=== PATIENT | female | born 1990 | race Caucasian/White ===

== ENCOUNTER 2019-05-26 00:42 | Inpatient (IN) | payer OTHER ==
[2019-05-26] MEDS ORDERED: Sodium Chloride 0.9% 2.5 ML Syringe FLUSH PRN (01:01)
[2019-05-26] MEDS ORDERED: Sodium Chloride 0.9% 10 ML Syringe FLUSH PRN (01:01)
[2019-05-26] MEDS ORDERED: Nalbuphine 10 MG/1 ML Vial IVPUSH PRN (01:01)
[2019-05-26] MEDS ORDERED: Butorphanol 1 MG/ML SDV IVPUSH PRN (01:01)
[2019-05-26] MEDS ORDERED: Methylergonovine 0.2 MG/1 ML Amp IM PRN ×2 (01:01→18:24)
[2019-05-26] MEDS ORDERED: Misoprostol 25 MCG (1/4 of 100 MCG) Tab VAG PRN ×2 (01:01)
[2019-05-26] MEDS ORDERED: Water For Irrigation,Sterile 1,000 ML Container IRR PRN (01:01)
[2019-05-26] MEDS ORDERED: Misoprostol 200 MCG Tab PO PRN (01:01)
[2019-05-26] MEDS ORDERED: Sodium Chloride 0.9% 10 ML SDV IV PRN (01:01)
[2019-05-26] MEDS ORDERED: Terbutaline 1 MG/ML SDV SUBCUT PRN (01:01)
[2019-05-26] MEDS ORDERED: Ondansetron 4 MG/2 ML SDV IVPUSH PRN (01:01)
[2019-05-26] MEDS ORDERED: Lidocaine 1% 50 ML MDV INJECT PRN (01:01)
[2019-05-26] MEDS ORDERED: Tranexamic Acid 1,000 MG in Sodium Chloride 0.9% 100 ML IV PRN ×2 (01:01→18:24)
[2019-05-26] MEDS ORDERED: Carboprost Tromethamine 250 MCG/1 ML Amp IM PRN (01:01)
[2019-05-26] MEDS ORDERED: Oxytocin/0.9 % Sodium Chloride 30 UNIT/500 ML BAG IV SCH ×2 (01:15)
[2019-05-26] MEDS: Lactated Ringers 1,000 ML IV SCH ×3 (08:14→16:00)
[2019-05-26] MEDS ORDERED: Bupivicaine/fentaNYL/NS 250 ML ONE (10:33)
[2019-05-26] MEDS ORDERED: Ropivacaine 0.2% PF 2 MG/ML 20 ML SDV ONE (10:33)
--- NOTE | 2019-05-26 11:19 | PCM.PREANE ---
Preanesthetic Assessment - Procedure Proposed Procedure: labor epidural - Anesthesia/Transfusion/Family Hx Anesthesia History: No Prior Anesthesia (exept labor epidural 3 yrs ago) Family History of Anesthesia Reaction: No Transfusion History: No Prior Transfusion(s) - Review of Systems General: No Symptoms Pulmonary: No Symptoms Cardiovascular: No Symptoms Gastrointestinal: No Symptoms Neurological: No Symptoms Other: Reports: None - Physical Assessment Height: 5 ft 7 in Weight: 102.512 kg ASA Class: 2 Mental Status: Alert & Oriented x3 Airway Class: Mallampati = 1 Dentition: Reports: Normal Dentition Thyro-Mental Finger Breadths: 3 Mouth Opening Finger Breadths: 3 ROM/Head Extension: Full Lungs: Clear to Auscultation Cardiovascular: Regular Rate, Regular Rhythm - Lab Values: Laboratory Last Values WBC 10.73 K/uL (4.0-11.0) 05/26/19 02:15 RBC 4.25 M/uL (4.30-5.90) L 05/26/19 02:15 Hgb 11.1 g/dL (12.0-16.0) L 05/26/19 02:15 Hct 35.2 % (36.0-46.0) L 05/26/19 02:15 MCV 82.8 fL (80.0-98.0) 05/26/19 02:15 MCH 26.1 pg (27.0-32.0) L 05/26/19 02:15 MCHC 31.5 g/dL (31.0-37.0) 05/26/19 02:15 RDW Std Deviation 46.7 fl (28.0-62.0) 05/26/19 02:15 RDW Coeff of Steph 16 % (11.0-15.0) H 05/26/19 02:15 Plt Count 209 K/uL (150-400) 05/26/19 02:15 MPV 12.60 fL (7.40-12.00) H 05/26/19 02:15 Nucleated RBC % 0.0 /100WBC 05/26/19 02:15 Nucleated RBCs # 0 K/uL 05/26/19 02:15 POC Glucose 98 mg/dL (60-110) 05/26/19 03:54 Blood Type A POSITIVE 05/26/19 02:55 Antibody Screen NEGATIVE 05/26/19 02:55 - Allergies Allergies/Adverse Reactions: Allergies Allergy/AdvReac Type Severity Reaction Status Date / Time No Known Allergies Allergy Verified 05/26/19 04:22 - Blood Blood Available: Yes Product(s) Available: PRBC - Acknowledgements Anesthesia Type Planned: Epidural Pt an Appropriate Candidate for the Planned Anesthesia: Yes Alternatives and Risks of Anesthesia Discussed w Pt/Guardian: Yes Pt/Guardian Understands and Agrees with Anesthesia Plan: Yes PreAnesthesia Questionnaire [employer] History: Reports: , Spontaneous Other Psychiatric History: possible post depression with first delivery Endocrine/Metabolic History: Reports: Diabetes, Gestational - Infectious Disease History Infectious Disease History: Reports: Chicken Pox - SUBSTANCE USE Smoking Status *Q: Never Smoker Second Hand Smoke Exposure: No Recreational Drug Use History: No - CURRENT (IN HOUSE) MEDS Current Meds: Current Medications Butorphanol Tartrate (Stadol) 1 mg IVPUSH Q1H PRN PRN Reason: Pain Carboprost Tromethamine (Hemabate Ds) 250 mcg IM ASDIRECTED PRN PRN Reason: Post Hemorrhage Lactated Ringer's (Ringers, Lactated) 1,000 mls @ 150 mls/hr IV ASDIRECTED RADHA Last Admin: 05/26/19 08:14 Dose: 150 mls/hr Oxytocin/Sodium Chloride (Oxytocin 30 Unit/500 Ml-Ns) 30 unit in 500 mls @ 500 mls/hr IV TITRATE RADHA Oxytocin/Sodium Chloride (Oxytocin 30 Unit/500 Ml-Ns) 30 unit in 500 mls @ 2 mls/hr IV TITRATE RADHA; Protocol Last Titration: 05/26/19 08:52 Dose: 4 munits/min, 4 mls/hr Tranexamic Acid 1,000 mg/ (Sodium Chloride) 110 mls @ 660 mls/hr IV ONETIME PRN PRN Reason: Bleeding Lidocaine HCl (Xylocaine 1%) 50 ml INJECT ONETIME PRN PRN Reason: Laceration repair Methylergonovine Maleate (Methergine) 0.2 mg IM ASDIRECTED PRN PRN Reason: Post Hemorrhage Misoprostol (Cytotec) 200 mcg PO ONETIME PRN PRN Reason: Post Hemorrhage Misoprostol (Cytotec) 25 mcg VAG ONETIME PRN PRN Reason: Cervical Ripening Last Admin: 05/26/19 03:24 Dose: 25 mcg Misoprostol (Cytotec) 25 mcg VAG Q4H PRN PRN Reason: Cervical Ripening Nalbuphine HCl (Nubain) 10 mg IVPUSH Q1H PRN PRN Reason: Pain (severe 7-10) Ondansetron HCl (Zofran) 4 mg IVPUSH Q6H PRN PRN Reason: Nausea/Vomiting Sodium Chloride (Saline Flush) 10 ml FLUSH ASDIRECTED PRN PRN Reason: Keep Vein Open Sodium Chloride (Saline Flush) 2.5 ml FLUSH ASDIRECTED PRN PRN Reason: Keep Vein Open Sodium Chloride (Normal Saline) 10 ml IV ASDIRECTED PRN PRN Reason: IV Use Sterile Water (Sterile Water For Irrigation) 1,000 ml IRR ASDIRECTED PRN PRN Reason: delivery Terbutaline Sulfate (Brethine) 0.25 mg SUBCUT ASDIRECTED PRN PRN Reason: Tacysystole Discontinued Medications Fentanyl/Bupivacaine HCl (Fentanyl/Bupivacaine/Ns 2 Mcg-0.125% 250 Ml) Confirm Administered Dose 250 mls @ as [facility] Stop: 05/26/19 10:34 Ropivacaine (Naropin 0.2%) Confirm Administered Dose 20 ml .ROUTE .STK-MED ONE Stop: 05/26/19 10:34
[2019-05-26] MEDS ORDERED: Bupivacaine 0.5% 10 ML SDV ONE (16:36)
--- NOTE | 2019-05-26 18:21 | PCM.DEL ---
L & D Note - General Info Date of Service: 05/26/19 Mother's Due Date: 06/04/19 - Delivery Note Labor: Induced by Oxytocin Cervical Ripening Method: Misoprostil Delivery Outcome: Livebirth Infant Delivery Method: Spontaneous Vaginal Delivery-Single Presentation: Left Occiput Anterior (BRAIN) Nuchal Cord: None Prep: Other Anesthesia Type: Epidural Amniotic Fluid Description: Clear Episiotomy Type: None Laceration: 2nd Degree Suture type: Vicryl Suture size: 3-0 Placenta: Intact, Spontaneous Cord: 3 Vessels Estimated Blood Loss: 200 Resuscitation Needed: No : Suctioned Score 1 min: 9 Score 5 min: 9 Delivery Comments (Free Text/Narrative):: Liveborn female 11/11 weight 3930 grams. - General Info Date of Service: 05/26/19 - Patient Data Weight - Most Recent: 102.512 kg Lab Results Last 24 Hours: Laboratory Results - last 24 hr 05/26/19 05/26/19 05/26/19 Range/Units 02:15 02:55 03:54 WBC 10.73 (4.0-11.0) K/uL RBC 4.25 L (4.30-5.90) M/uL Hgb 11.1 L (12.0-16.0) g/dL Hct 35.2 L (36.0-46.0) % MCV 82.8 (80.0-98.0) fL MCH 26.1 L (27.0-32.0) pg MCHC 31.5 (31.0-37.0) g/dL RDW Std Deviation 46.7 (28.0-62.0) fl RDW Coeff of Steph 16 H (11.0-15.0) % Plt Count 209 (150-400) K/uL MPV 12.60 H (7.40-12.00) fL Nucleated RBC % 0.0 /100WBC Nucleated RBCs # 0 K/uL POC Glucose 98 (60-110) mg/dL Blood Type A POSITIVE Antibody Screen NEGATIVE 05/26/19 Range/Units 14:26 WBC (4.0-11.0) K/uL RBC (4.30-5.90) M/uL Hgb (12.0-16.0) g/dL Hct (36.0-46.0) % MCV (80.0-98.0) fL MCH (27.0-32.0) pg MCHC (31.0-37.0) g/dL RDW Std Deviation (28.0-62.0) fl RDW Coeff of Steph (11.0-15.0) % Plt Count (150-400) K/uL MPV (7.40-12.00) fL Nucleated RBC % /100WBC Nucleated RBCs # K/uL POC Glucose 90 (60-110) mg/dL Blood Type Antibody Screen Med Orders - Current: Current Medications Butorphanol Tartrate (Stadol) 1 mg IVPUSH Q1H PRN PRN Reason: Pain Carboprost Tromethamine (Hemabate Ds) 250 mcg IM ASDIRECTED PRN PRN Reason: Post Hemorrhage Lactated Ringer's (Ringers, Lactated) 1,000 mls @ 150 mls/hr IV ASDIRECTED RADHA Last Admin: 05/26/19 16:00 Dose: 150 mls/hr Oxytocin/Sodium Chloride (Oxytocin 30 Unit/500 Ml-Ns) 30 unit in 500 mls @ 500 mls/hr IV TITRATE RADHA Oxytocin/Sodium Chloride (Oxytocin 30 Unit/500 Ml-Ns) 30 unit in 500 mls @ 2 mls/hr IV TITRATE RADHA; Protocol Last Titration: 05/26/19 17:15 Dose: 10 munits/min, 10 mls/hr Tranexamic Acid 1,000 mg/ (Sodium Chloride) 110 mls @ 660 mls/hr IV ONETIME PRN PRN Reason: Bleeding Lidocaine HCl (Xylocaine 1%) 50 ml INJECT ONETIME PRN PRN Reason: Laceration repair Methylergonovine Maleate (Methergine) 0.2 mg IM ASDIRECTED PRN PRN Reason: Post Hemorrhage Misoprostol (Cytotec) 200 mcg PO ONETIME PRN PRN Reason: Post Hemorrhage Misoprostol (Cytotec) 25 mcg VAG ONETIME PRN PRN Reason: Cervical Ripening Last Admin: 05/26/19 03:24 Dose: 25 mcg Misoprostol (Cytotec) 25 mcg VAG Q4H PRN PRN Reason: Cervical Ripening Nalbuphine HCl (Nubain) 10 mg IVPUSH Q1H PRN PRN Reason: Pain (severe 7-10) Ondansetron HCl (Zofran) 4 mg IVPUSH Q6H PRN PRN Reason: Nausea/Vomiting Sodium Chloride (Saline Flush) 10 ml FLUSH ASDIRECTED PRN PRN Reason: Keep Vein Open Sodium Chloride (Saline Flush) 2.5 ml FLUSH ASDIRECTED PRN PRN Reason: Keep Vein Open Sodium Chloride (Normal Saline) 10 ml IV ASDIRECTED PRN PRN Reason: IV Use Sterile Water (Sterile Water For Irrigation) 1,000 ml IRR ASDIRECTED PRN PRN Reason: delivery Terbutaline Sulfate (Brethine) 0.25 mg SUBCUT ASDIRECTED PRN PRN Reason: Tacysystole Discontinued Medications Bupivacaine HCl (Sensorcaine-Mpf 0.5%) Confirm Administered Dose 10 ml .ROUTE .STK-MED ONE Stop: 05/26/19 16:37 Fentanyl/Bupivacaine HCl (Fentanyl/Bupivacaine/Ns 2 Mcg-0.125% 250 Ml) Confirm Administered Dose 250 mls @ as directed .[facility]TE [facility] Stop: 05/26/19 10:34 Ropivacaine (Naropin 0.2%) Confirm Administered Dose 20 ml .ROUTE .STK-MED ONE Stop: 05/26/19 10:34 - Problem List & Annotations (1) Vaginal delivery SNOMED Code(s): 081685237 Code(s): O80 - ENCOUNTER FOR FULL-TERM UNCOMPLICATED DELIVERY Status: Acute Current Visit: Yes - Problem List Review Problem List Initiated/Reviewed/Updated: Yes - My Orders Last 24 Hours: My Active Orders 05/26/19 01:01 Patient Status [ADT] Routine Bedrest Bathroom Privileges [RC] ASDIRECTED Communication Order [RC] ASDIRECTED Communication Order [RC] ASDIRECTED May Shower [RC] ASDIRECTED Notify Provider [RC] PRN Notify Provider [RC] PRN Oxygen Therapy [RC] ASDIRECTED Up ad Pepper [RC] ASDIRECTED Vital Signs [RC] PER UNIT ROUTINE Vital Signs [RC] PER UNIT ROUTINE Butorphanol [Stadol] 1 mg IVPUSH Q1H PRN Carboprost Tromethamine [Hemabate DS] 250 mcg IM ASDIRECTED PRN Lidocaine 1% [Xylocaine 1%] 50 ml INJECT ONETIME PRN Methylergonovine [Methergine] 0.2 mg IM ASDIRECTED PRN Nalbuphine [Nubain] 10 mg IVPUSH Q1H PRN Ondansetron [Zofran] 4 mg IVPUSH Q6H PRN Sodium Chloride 0.9% [Normal Saline] 10 ml IV ASDIRECTED PRN Sodium Chloride 0.9% [Saline Flush] 10 ml FLUSH ASDIRECTED PRN Sodium Chloride 0.9% [Saline Flush] 2.5 ml FLUSH ASDIRECTED PRN Terbutaline [Brethine] 0.25 mg SUBCUT ASDIRECTED PRN Tranexamic Acid [Cyklokapron] 1,000 mg Sodium Chloride 0.9% [Normal Saline] 100 ml IV ONETIME Water For Irrigation,Sterile [Sterile Water for Irrigation] 1,000 ml IRR ASDIRECTED PRN miSOPROStoL [Cytotec] 200 mcg PO ONETIME PRN miSOPROStoL [Cytotec] 25 mcg VAG ONETIME PRN miSOPROStoL [Cytotec] 25 mcg VAG Q4H PRN Scalp Electrode [WOMSER] Per Unit Routine Peripheral IV Insertion Adult [OM.PC] Routine Resuscitation Status Routine 05/26/19 01:15 Lactated Ringers [Ringers, Lactated] 1,000 ml IV ASDIRECTED Oxytocin/0.9 % Sodium Chloride [Oxytocin 30 Unit/500 ML-NS] 30 unit in 500 ml IV TITRATE Oxytocin/0.9 % Sodium Chloride [Oxytocin 30 Unit/500 ML-NS] 30 unit in 500 ml IV TITRATE Medication Administration Instruction [OM.PC] Q3H 05/26/19 02:15 RPR (SYPHILIS SERO) W/ RFLX [REF] Routine 05/26/19 Breakfast Regular Diet [DIET]
[2019-05-26] MEDS ORDERED: Bisacodyl 10 MG Supp RECTAL PRN (18:24)
[2019-05-26] MEDS ORDERED: Acetaminophen 500 MG Tab PO PRN (18:24)
[2019-05-26] MEDS ORDERED: Lanolin 100% Cream 7 GM Tube TOP PRN (18:24)
[2019-05-26] MEDS ORDERED: Witch Hazel Medicated Pads 40/Jar TOP PRN (18:24)
[2019-05-26] MEDS ORDERED: Benzocaine/Menthol 20%-0.5% Spray 78 GM Cannister TOP PRN (18:24)
--- NOTE | 2019-05-26 19:19 | OR ---
SURGEON: Yarely Nj M.D. DATE OF PROCEDURE: 05/26/2019 PREOPERATIVE DIAGNOSES: A 38-5/7 weeks' intrauterine , gestational diabetes, suspected macrosomia. POSTOPERATIVE DIAGNOSES: A 38-5/7 weeks' intrauterine , gestational diabetes, suspected macrosomia. PROCEDURES: Cytotec and Pitocin induction of labor, term spontaneous vaginal delivery, repair of second-degree laceration. PRIMARY SURGEON: Yarely Nj MD ANESTHESIA: Epidural. ESTIMATED BLOOD LOSS: Less than 200 mL. FINDINGS: Liveborn female, score of 9 and 9, weighing 3930 g. Placenta spontaneous, Schultze intact with 3 vessels. Second-degree perineal laceration, repaired. COMPLICATIONS: None known. DISPOSITION: Mother and baby in LDR in good condition. BRIEF HISTORY: This is a 28-year-old female. She is G2, P1. She presents at 38-5/7 weeks' gestation. She has been on insulin for control of her gestational diabetes. Fastings have been somewhat elevated. Other readings have been normal. Estimated weight of 4000 g on ultrasound. She has a history of a fourth- degree laceration. She was offered delivery. She declines, desires to proceed with vaginal delivery. The risks of induction including hyperstimulation, bleeding, infection were discussed, and she does desire to proceed. She arrived on Labor and Delivery. She received Cytotec. After this, she was 2 cm, 70%, high. She was started on Pitocin. She received an epidural for pain control. At this point, she was 2 to 3 cm, 70%, minus 3 station. With the head well applied, artificial rupture of membranes was performed, clear fluid was noted. IUPC was placed. She was continued on Pitocin. With somewhat dysfunctional labor pattern at first, Pitocin had to be discontinued due to a 20- minute episode of decelerations. It was restarted at a half dose, which was 8 milliunits per minute. Labor then became more functional, and she progressed to complete. DESCRIPTION OF PROCEDURE: With the patient in dorsal lithotomy position, the patient pushed over a 1 hour time period to a 5+ station at which time the head was delivered spontaneously and atraumatically over the perineum with support with subsequent delivery of the 's shoulders and body without any difficulty. The infant was bulb suctioned by nose and mouth, and the infant was handed to the mother in the presence of nurse attending delivery. When the cord had ceased to pulsate, it was doubly clamped and cut. The was a liveborn female, score of 9 and 9, weighing 3930 g. Cord blood was collected for cord ABGs as well as routine cord blood sampling. Pitocin was initiated after delivery of the to help with delivery of the placenta, which was delivered spontaneously, Schultze intact with 3 vessels. Upon inspection of the pelvis and perineum, there were no periurethral, vaginal sidewall, cervical, or rectal lacerations. There was a second-degree perineal laceration along the same line as her prior laceration with significant scarring around the perineum. Deep interrupted [id number] sutures were placed into the perineum and the posterior subvaginal tissue for support, placing a finger in the rectum that there was no tear in the rectum and the sphincter was intact. Following the support sutures that were placed, a running lock suture of 3-0 Vicryl was used to reapproximate the vaginal mucosa. A deep running suture of the same for the more superficial perineum and a subcuticular suture of the same for the skin. Final sponge, needle, and instrument counts were reported as correct. There were no known complications. Mother and baby remained in LDR in good condition. MARY CANTRELL /[id number]
[2019-05-26] MEDS: Acetaminophen 500 MG Tab PO PRN (20:00)
--- NOTE | 2019-05-26 22:10 | PCM48HPAN ---
Post Anesthesia Note - EVALUATION WITHIN 48HRS OF ANESTHETIC Vital Signs in Normal Range: Yes Patient Participated in Evaluation: Yes Respiratory Function Stable: Yes Airway Patent: Yes Cardiovascular Function Stable: Yes Hydration Status Stable: Yes Pain Control Satisfactory: Yes Nausea and Vomiting Control Satisfactory: Yes Mental Status Recovered: Yes
[2019-05-26] MEDS: Ibuprofen 800 MG Tab PO PRN (22:50)
[2019-05-27] MEDS: Acetaminophen 500 MG Tab PO PRN (02:09)
[2019-05-27 07:15] LABS: BLOOD UREA NITROGEN,BUN 8 mg/dL (7.0-18.0); CARBON DIOXIDE,CO2 22.3 mmol/L (21.0-32.0); CHLORIDE,CL 108 mmol/L (98-107); GLUCOSE RANDOM 112 mg/dL (74-106); POTASSIUM,K 3.8 mmol/L (3.5-5.1); SODIUM,NA 141 mmol/L (136-145)
[2019-05-27] MEDS: Ibuprofen 800 MG Tab PO PRN ×2 (09:20→20:08)
[2019-05-27] MEDS: Docusate Sodium 100 MG Cap PO PRN ×2 (09:21→21:54)
--- NOTE | 2019-05-27 11:30 | PCM.PNPP ---
- General Info Date of Service: 05/27/19 Functional Status: Reports: Pain Controlled, Tolerating Diet, Ambulating, Urinating - Review of Systems General: Reports: No Symptoms HEENT: Reports: No Symptoms Pulmonary: Reports: No Symptoms Cardiovascular: Reports: No Symptoms Gastrointestinal: Reports: No Symptoms Genitourinary: Reports: No Symptoms Musculoskeletal: Reports: No Symptoms Skin: Reports: No Symptoms Neurological: Reports: No Symptoms Psychiatric: Reports: No Symptoms - General Info Date of Service: 05/27/19 - Patient Data Vital Signs - Most Recent: Last Vital Signs Temp 36.1 C 05/27/19 04:00 Pulse 74 05/27/19 04:00 Resp 16 05/27/19 04:00 BP 115/64 05/27/19 04:00 Pulse Ox 98 05/27/19 04:00 Weight - Most Recent: 102.512 kg Lab Results - Last 24 Hours: Laboratory Results - last 24 hr 05/26/19 05/26/19 05/27/19 Range/Units 14:26 17:53 06:05 Hgb 9.7 L (12.0-16.0) g/dL Hct 31.5 L (36.0-46.0) % Cord ABG pH 7.204 (7.18-7.38) Cord ABG Base Excess -9 (-10--2) Cord VBG pH 7.385 (7.25-7.45) Cord VBG Base Excess -6 (-10--2) Sodium (136-145) mmol/L Potassium (3.5-5.1) mmol/L Chloride (98-107) mmol/L Carbon Dioxide (21.0-32.0) mmol/L BUN (7.0-18.0) mg/dL Creatinine (0.6-1.0) mg/dL Est Cr Clr Drug Dosing mL/min Estimated GFR (MDRD) ml/min Glucose (74-106) mg/dL POC Glucose 90 (60-110) mg/dL Calcium (8.5-10.1) mg/dL 05/27/19 Range/Units 06:05 Hgb (12.0-16.0) g/dL Hct (36.0-46.0) % Cord ABG pH (7.18-7.38) Cord ABG Base Excess (-10--2) Cord VBG pH (7.25-7.45) Cord VBG Base Excess (-10--2) Sodium 141 (136-145) mmol/L Potassium 3.8 (3.5-5.1) mmol/L Chloride 108 H (98-107) mmol/L Carbon Dioxide 22.3 (21.0-32.0) mmol/L BUN 8 (7.0-18.0) mg/dL Creatinine 0.6 (0.6-1.0) mg/dL Est Cr Clr Drug Dosing 138.17 mL/min Estimated GFR (MDRD) > 60.0 ml/min Glucose 112 H (74-106) mg/dL POC Glucose (60-110) mg/dL Calcium 9.2 (8.5-10.1) mg/dL Med Orders - Current: Current Medications Acetaminophen (Tylenol Extra Strength) 500 mg PO Q4H PRN PRN Reason: Pain Acetaminophen (Tylenol Extra Strength) 1,000 mg PO Q4H PRN PRN Reason: Pain Last Admin: 05/27/19 02:09 Dose: 1,000 mg Benzocaine/Menthol (Dermoplast Pain Relief 20%-0.5% Kemp) 78 gm TOP ASDIRECTED PRN PRN Reason: Perineal Comfort Measure Bisacodyl (Dulcolax) 10 mg RECTAL ONETIME PRN PRN Reason: Constipation Docusate Sodium (Colace) 100 mg PO BID PRN PRN Reason: Constipation Last Admin: 05/27/19 09:21 Dose: 100 mg Emollient Ointment (Lansinoh Hpa) 0 gm TOP ASDIRECTED PRN PRN Reason: Sore Nipples Tranexamic Acid 1,000 mg/ (Sodium Chloride) 110 mls @ 660 mls/hr IV ONETIME PRN PRN Reason: Bleeding Ibuprofen (Motrin) 800 mg PO Q8H PRN PRN Reason: Abdominal Pain Last Admin: 05/27/19 09:20 Dose: 800 mg Methylergonovine Maleate (Methergine) 0.2 mg IM ONETIME PRN PRN Reason: Excessive Vaginal Bleeding Witch Nuzhat (Tucks) 1 pad TOP ASDIRECTED PRN PRN Reason: comfort care Discontinued Medications Bupivacaine HCl (Sensorcaine-Mpf 0.5%) Confirm Administered Dose 10 ml .ROUTE .STK-MED ONE Stop: 05/26/19 16:37 Butorphanol Tartrate (Stadol) 1 mg IVPUSH Q1H PRN PRN Reason: Pain Carboprost Tromethamine (Hemabate Ds) 250 mcg IM ASDIRECTED PRN PRN Reason: Post Hemorrhage Lactated Ringer's (Ringers, Lactated) 1,000 mls @ 150 mls/hr IV ASDIRECTED RADHA Last Admin: 05/26/19 16:00 Dose: 150 mls/hr Oxytocin/Sodium Chloride (Oxytocin 30 Unit/500 Ml-Ns) 30 unit in 500 mls @ 500 mls/hr IV TITRATE RADHA Oxytocin/Sodium Chloride (Oxytocin 30 Unit/500 Ml-Ns) 30 unit in 500 mls @ 2 mls/hr IV TITRATE RADHA; Protocol Last Titration: 05/26/19 17:15 Dose: 10 munits/min, 10 mls/hr Tranexamic Acid 1,000 mg/ (Sodium Chloride) 110 mls @ 660 mls/hr IV ONETIME PRN PRN Reason: Bleeding Fentanyl/Bupivacaine HCl (Fentanyl/Bupivacaine/Ns 2 Mcg-0.125% 250 Ml) Confirm Administered Dose 250 mls @ as directed .ROUTE .[employer]-MED ONE Stop: 05/26/19 10:34 Lidocaine HCl (Xylocaine 1%) 50 ml INJECT ONETIME PRN PRN Reason: Laceration repair Methylergonovine Maleate (Methergine) 0.2 mg IM ASDIRECTED PRN PRN Reason: Post Hemorrhage Misoprostol (Cytotec) 200 mcg PO ONETIME PRN PRN Reason: Post Hemorrhage Misoprostol (Cytotec) 25 mcg VAG ONETIME PRN PRN Reason: Cervical Ripening Last Admin: 05/26/19 03:24 Dose: 25 mcg Misoprostol (Cytotec) 25 mcg VAG Q4H PRN PRN Reason: Cervical Ripening Nalbuphine HCl (Nubain) 10 mg IVPUSH Q1H PRN PRN Reason: Pain (severe 7-10) Ondansetron HCl (Zofran) 4 mg IVPUSH Q6H PRN PRN Reason: Nausea/Vomiting Ropivacaine (Naropin 0.2%) Confirm Administered Dose 20 ml .ROUTE .[email or web address]-MED ONE Stop: 05/26/19 10:34 Sodium Chloride (Saline Flush) 10 ml FLUSH ASDIRECTED PRN PRN Reason: Keep Vein Open Sodium Chloride (Saline Flush) 2.5 ml FLUSH ASDIRECTED PRN PRN Reason: Keep Vein Open Sodium Chloride (Normal Saline) 10 ml IV ASDIRECTED PRN PRN Reason: IV Use Sterile Water (Sterile Water For Irrigation) 1,000 ml IRR ASDIRECTED PRN PRN Reason: delivery Terbutaline Sulfate (Brethine) 0.25 mg SUBCUT ASDIRECTED PRN PRN Reason: Tacysystole - Infant Interaction Disposition, : [place] in Room with Family Feeding: Breastfed Infant; Nursed Well Support Person: - Recovery Exam Fundal Tone: Firm Fundal Level: 1 Fingerbreadths Below Umbilicus Fundal Placement: Midline Lochia Amount: Small Lochia Color: Rubra/Red Perineum Description: Intact, Minimal Bruising/Swelling Episiotomy/Laceration: None Bladder Status: Voiding Urinary Elimination: Voided - Exam General: Alert, Oriented HEENT: Pupils Equal Neck: Supple Lungs: Normal Respiratory Effort GI/Abdominal Exam: Soft, Non-Tender, No Distention Extremities: Normal Inspection, Non-Tender, No Pedal Edema Skin: Warm, Dry, Intact Neurological: No New Focal Deficit - Problem List & Annotations (1) Vaginal delivery SNOMED Code(s): 768683936 Code(s): O80 - ENCOUNTER FOR FULL-TERM UNCOMPLICATED DELIVERY Status: Acute Current Visit: Yes (2) Gestational diabetes mellitus (GDM) in childbirth, insulin controlled SNOMED Code(s): 76754851 Code(s): O24.424 - GESTATIONAL DIABETES IN CHILDBIRTH, INSULIN CONTROLLED Status: Acute Current Visit: Yes - Problem List Review Problem List Initiated/Reviewed/Updated: Yes - My Orders Last 24 Hours: My Active Orders 05/26/19 18:24 Acetaminophen [Tylenol Extra Strength] 1,000 mg PO Q4H PRN Acetaminophen [Tylenol Extra Strength] 500 mg PO Q4H PRN Benzocaine/Menthol [Dermoplast Pain Relief 20%-0.5% Kemp] 78 gm TOP ASDIRECTED PRN Docusate Sodium [Colace] 100 mg PO BID PRN Lanolin [Lansinoh HPA] See Dose Instructions TOP ASDIRECTED PRN Methylergonovine [Methergine] 0.2 mg IM ONETIME PRN Tranexamic Acid [Cyklokapron] 1,000 mg Sodium Chloride 0.9% [Normal Saline] 100 ml IV ONETIME bisacodyL [Dulcolax] 10 mg RECTAL ONETIME PRN witch Nuzhat [Tucks] 1 pad TOP ASDIRECTED PRN Resuscitation Status Routine 05/26/19 18:25 Patient Status [ADT] Routine May Shower [RC] ASDIRECTED Up ad Pepper [RC] ASDIRECTED Vital Signs [RC] PER UNIT ROUTINE Assess Lochia [WOMSER] Per Unit Routine Assess Uterine Involution [WOMSER] Per Unit Routine Perineal Care [OM.PC] Per Unit Routine Peripheral IV Discontinue [OM.PC] Routine 05/26/19 Dinner Regular Diet [DIET] 05/27/19 11:27 Ready for Discharge [RC] PER UNIT ROUTINE - Assessment Assessment:: PPD#1 after stable minimal lochia, tolerating diet. Fasting glucose this am was 112. She would like to go home today. - Plan Plan:: Discharge instructions reviewed. Needs 2 hour glucose tolerance test at 6 weeks .
[2019-05-28] MEDS: Ibuprofen 800 MG Tab PO PRN ×2 (05:03→14:43)
--- NOTE | 2019-05-28 08:36 | PCM.PNPP ---
- General Info Date of Service: 05/28/19 Functional Status: Reports: Pain Controlled, Tolerating Diet, Ambulating, Urinating, Other (baby stayed due to jitteriness yesterday. Labs and vitals normal.) - Review of Systems General: Reports: No Symptoms HEENT: Reports: No Symptoms Pulmonary: Reports: No Symptoms Cardiovascular: Reports: No Symptoms Gastrointestinal: Reports: No Symptoms Genitourinary: Reports: No Symptoms Musculoskeletal: Reports: No Symptoms Skin: Reports: No Symptoms Neurological: Reports: No Symptoms Psychiatric: Reports: No Symptoms - General Info Date of Service: 05/28/19 - Patient Data Vital Signs - Most Recent: Last Vital Signs Temp 36.4 C 05/28/19 04:00 Pulse 71 05/28/19 04:00 Resp 16 05/28/19 04:00 BP 108/58 L 05/28/19 04:00 Pulse Ox 98 05/28/19 04:00 Weight - Most Recent: 102.512 kg Med Orders - Current: Current Medications Acetaminophen (Tylenol Extra Strength) 500 mg PO Q4H PRN PRN Reason: Pain Acetaminophen (Tylenol Extra Strength) 1,000 mg PO Q4H PRN PRN Reason: Pain Last Admin: 05/27/19 02:09 Dose: 1,000 mg Benzocaine/Menthol (Dermoplast Pain Relief 20%-0.5% Garner) 78 gm TOP ASDIRECTED PRN PRN Reason: Perineal Comfort Measure Bisacodyl (Dulcolax) 10 mg RECTAL ONETIME PRN PRN Reason: Constipation Docusate Sodium (Colace) 100 mg PO BID PRN PRN Reason: Constipation Last Admin: 05/27/19 21:54 Dose: 100 mg Emollient Ointment (Lansinoh Hpa) 0 gm TOP ASDIRECTED PRN PRN Reason: Sore Nipples Tranexamic Acid 1,000 mg/ (Sodium Chloride) 110 mls @ 660 mls/hr IV ONETIME PRN PRN Reason: Bleeding Ibuprofen (Motrin) 800 mg PO Q8H PRN PRN Reason: Abdominal Pain Last Admin: 05/28/19 05:03 Dose: 800 mg Methylergonovine Maleate (Methergine) 0.2 mg IM ONETIME PRN PRN Reason: Excessive Vaginal Bleeding Witch Nella (Tucks) 1 pad TOP ASDIRECTED PRN PRN Reason: comfort care Discontinued Medications Bupivacaine HCl (Sensorcaine-Mpf 0.5%) Confirm Administered Dose 10 ml .ROUTE .[employer] ONE Stop: 05/26/19 16:37 Butorphanol Tartrate (Stadol) 1 mg IVPUSH Q1H PRN PRN Reason: Pain Carboprost Tromethamine (Hemabate Ds) 250 mcg IM ASDIRECTED PRN PRN Reason: Post Hemorrhage Lactated Ringer's (Ringers, Lactated) 1,000 mls @ 150 mls/hr IV ASDIRECTED RADHA Last Admin: 05/26/19 16:00 Dose: 150 mls/hr Oxytocin/Sodium Chloride (Oxytocin 30 Unit/500 Ml-Ns) 30 unit in 500 mls @ 500 mls/hr IV TITRATE RADHA Oxytocin/Sodium Chloride (Oxytocin 30 Unit/500 Ml-Ns) 30 unit in 500 mls @ 2 mls/hr IV TITRATE RADHA; Protocol Last Titration: 05/26/19 17:15 Dose: 10 munits/min, 10 mls/hr Tranexamic Acid 1,000 mg/ (Sodium Chloride) 110 mls @ 660 mls/hr IV ONETIME PRN PRN Reason: Bleeding Fentanyl/Bupivacaine HCl (Fentanyl/Bupivacaine/Ns 2 Mcg-0.125% 250 Ml) Confirm Administered Dose 250 mls @ as directed .ROUTE .[employer] ONE Stop: 05/26/19 10:34 Lidocaine HCl (Xylocaine 1%) 50 ml INJECT ONETIME PRN PRN Reason: Laceration repair Methylergonovine Maleate (Methergine) 0.2 mg IM ASDIRECTED PRN PRN Reason: Post Hemorrhage Misoprostol (Cytotec) 200 mcg PO ONETIME PRN PRN Reason: Post Hemorrhage Misoprostol (Cytotec) 25 mcg VAG ONETIME PRN PRN Reason: Cervical Ripening Last Admin: 05/26/19 03:24 Dose: 25 mcg Misoprostol (Cytotec) 25 mcg VAG Q4H PRN PRN Reason: Cervical Ripening Nalbuphine HCl (Nubain) 10 mg IVPUSH Q1H PRN PRN Reason: Pain (severe 7-10) Ondansetron HCl (Zofran) 4 mg IVPUSH Q6H PRN PRN Reason: Nausea/Vomiting Ropivacaine (Naropin 0.2%) Confirm Administered Dose 20 ml .ROUTE .[facility] ONE Stop: 05/26/19 10:34 Sodium Chloride (Saline Flush) 10 ml FLUSH ASDIRECTED PRN PRN Reason: Keep Vein Open Sodium Chloride (Saline Flush) 2.5 ml FLUSH ASDIRECTED PRN PRN Reason: Keep Vein Open Sodium Chloride (Normal Saline) 10 ml IV ASDIRECTED PRN PRN Reason: IV Use Sterile Water (Sterile Water For Irrigation) 1,000 ml IRR ASDIRECTED PRN PRN Reason: delivery Terbutaline Sulfate (Brethine) 0.25 mg SUBCUT ASDIRECTED PRN PRN Reason: Tacysystole - Infant Interaction Disposition, : in Room with Family Feeding: Breastfed Infant; Nursed Well Support Person: - Recovery Exam Fundal Tone: Firm Fundal Level: At Umbilicus Fundal Placement: Midline Lochia Amount: Small Lochia Color: Rubra/Red Perineum Description: Intact, Minimal Bruising/Swelling Episiotomy/Laceration: None Bladder Status: Voiding Urinary Elimination: Voided - Exam General: Alert, Oriented Neck: Supple Lungs: Normal Respiratory Effort GI/Abdominal Exam: Soft, Non-Tender, No Distention Extremities: Normal Inspection, Non-Tender, No Pedal Edema Skin: Warm, Dry, Intact Psy/Mental Status: Alert, Normal Affect, Normal Mood - Problem List & Annotations (1) Vaginal delivery SNOMED Code(s): 984504599 Code(s): O80 - ENCOUNTER FOR FULL-TERM UNCOMPLICATED DELIVERY Status: Acute Current Visit: Yes (2) Gestational diabetes mellitus (GDM) in childbirth, insulin controlled SNOMED Code(s): 99638732 Code(s): O24.424 - GESTATIONAL DIABETES IN CHILDBIRTH, INSULIN CONTROLLED Status: Acute Current Visit: Yes - Problem List Review Problem List Initiated/Reviewed/Updated: Yes - My Orders Last 24 Hours: My Active Orders 05/27/19 11:27 Ready for Discharge [RC] PER UNIT ROUTINE 05/28/19 08:34 Ready for Discharge [RC] PER UNIT ROUTINE - Assessment Assessment:: PPD#2 after stable minimal lochia, tolerating diet. - Plan Plan:: Dismiss to home today.
== END 2019-05-28 18:00 | disposition home or self-care (01) | DRG 807 ==
LOC: MW.OBCHECK 00:42 → MW.OB 00:43 → MW.OBCHECK 01:01 → OBSVTOIN 18:25 → MW.OB 22:30
PROVIDERS: ADMIT Obstetrics & Gynecology; ATTEND Obstetrics & Gynecology
PROC: 10E0XZZ Delivery of Products of Conception, External Approach (ICD-10-PCS; principal; 2019-05-26)
PROC: 0KQM0ZZ Repair Perineum Muscle, Open Approach (ICD-10-PCS; 2019-05-26)
PROC: 10907ZC Drainage of Amniotic Fluid, Therapeutic from Products of Conception, Via Natural or Artificial Opening (ICD-10-PCS; 2019-05-26)
PROC: 3E0P7VZ Introduction of Hormone into Female Reproductive, Via Natural or Artificial Opening (ICD-10-PCS; 2019-05-26)
PROC: 3E033VJ Introduction of Other Hormone into Peripheral Vein, Percutaneous Approach (ICD-10-PCS; 2019-05-26)
PROC: 3E0R3BZ Introduction of Anesthetic Agent into Spinal Canal, Percutaneous Approach (ICD-10-PCS; 2019-05-26)
DX: O24.420 Gestational diabetes mellitus in childbirth, diet controlled (principal); Z37.0 Single live birth; O36.63X0 Maternal care for excessive fetal growth, third trimester, not applicable or unspecified; Z3A.38 38 weeks gestation of pregnancy; O70.1 Second degree perineal laceration during delivery
CPT/HCPCS: 36415; 51702; 59025; 59409; 80048; 82803; 82962; 85014; 85018; 85027; 86592; 86593; 86850; 86900; 86901; A9270-GY; J2590; J7120

== ENCOUNTER 2021-01-25 05:16 | Inpatient (IN) | payer OTHER ==
[2021-01-25] MEDS ORDERED: Nalbuphine 10 MG/1 ML Vial IVPUSH PRN (05:21)
[2021-01-25] MEDS ORDERED: Lidocaine 1% 50 ML MDV INJECT PRN (05:21)
[2021-01-25] MEDS ORDERED: Sodium Chloride 0.9% 10 ML Syringe FLUSH PRN (05:21)
[2021-01-25] MEDS ORDERED: Misoprostol 200 MCG Tab PO PRN (05:21)
[2021-01-25] MEDS ORDERED: Methylergonovine 0.2 MG/1 ML Amp IM PRN (05:21)
[2021-01-25] MEDS ORDERED: Water For Irrigation,Sterile 1,000 ML Container IRR PRN (05:21)
[2021-01-25] MEDS ORDERED: Butorphanol 1 MG/ML SDV IVPUSH PRN (05:21)
[2021-01-25] MEDS ORDERED: Sodium Chloride 0.9% 20 ML SDV IV PRN (05:21)
[2021-01-25] MEDS ORDERED: Carboprost Tromethamine 250 MCG/1 ML Amp IM PRN (05:21)
[2021-01-25] MEDS ORDERED: Ondansetron 4 MG/2 ML SDV IVPUSH PRN (05:21)
[2021-01-25] MEDS ORDERED: Tranexamic Acid 1,000 MG in Sodium Chloride 0.9% 100 ML IV PRN (05:21)
[2021-01-25] MEDS ORDERED: Sodium Chloride 0.9% 2.5 ML Syringe FLUSH PRN (05:21)
[2021-01-25] MEDS ORDERED: Terbutaline 1 MG/ML SDV SUBCUT PRN (05:27)
[2021-01-25] MEDS ORDERED: Misoprostol 25 MCG (1/4 of 100 MCG) Tab VAG PRN ×2 (05:27)
[2021-01-25] MEDS ORDERED: Oxytocin/0.9 % Sodium Chloride 30 UNIT/500 ML BAG IV SCH ×2 (05:30)
[2021-01-25] MEDS: Lactated Ringers 1,000 ML IV SCH ×3 (05:38→12:59)
[2021-01-25] MEDS ORDERED: Ropivacaine HCl/PF 200 ML ONE (08:31)
[2021-01-25] MEDS ORDERED: ePHEDrine 50 MG/ML SDV IVPUSH PRN ×2 (08:41)
--- NOTE | 2021-01-25 08:43 | PCM.PREANE ---
Preanesthetic Assessment - Anesthesia/Transfusion/Family Hx Anesthesia History: Prior Anesthesia Without Reaction Transfusion History: No Prior Transfusion(s) - Review of Systems General: No Symptoms Pulmonary: No Symptoms Cardiovascular: No Symptoms Gastrointestinal: No Symptoms Neurological: No Symptoms Other: Reports: None - Physical Assessment NPO Status Date: 01/25/21 NPO Status Time: 00:00 Height: 5 ft 6.25 in Weight: 221 lb 12.8 oz ASA Class: 2 Mental Status: Alert & Oriented x3 Airway Class: Mallampati = 2 Dentition: Reports: Normal Dentition Thyro-Mental Finger Breadths: 3 Mouth Opening Finger Breadths: 3 ROM/Head Extension: Full Lungs: Clear to Auscultation, Normal Respiratory Effort Cardiovascular: Regular Rate, Regular Rhythm - Lab Values: Laboratory Last Values WBC 6.98 K/uL (4.0-11.0) 01/25/21 05:35 RBC 4.41 M/uL (4.30-5.90) 01/25/21 05:35 Hgb 12.0 g/dL (12.0-16.0) 01/25/21 05:35 Hct 36.7 % (36.0-46.0) 01/25/21 05:35 MCV 83.2 fL (80.0-98.0) 01/25/21 05:35 MCH 27.2 pg (27.0-32.0) 01/25/21 05:35 MCHC 32.7 g/dL (31.0-37.0) 01/25/21 05:35 RDW Std Deviation 72.3 fl (28.0-62.0) H 01/25/21 05:35 RDW Coeff of Steph 25 % (11.0-15.0) H 01/25/21 05:35 Plt Count 245 K/uL (150-400) 01/25/21 05:35 Nucleated RBC % 0.0 /100WBC 01/25/21 05:35 Nucleated RBCs # 0 K/uL 01/25/21 05:35 SARS-CoV-2 RNA (BEATRIZ) NEGATIVE (NEGATIVE) 01/25/21 05:50 Blood Type A POSITIVE 01/25/21 05:35 Antibody Screen NEGATIVE 01/25/21 05:35 - Allergies Allergies/Adverse Reactions: Allergies Allergy/AdvReac Type Severity Reaction Status Date / Time No Known Allergies Allergy Verified 01/25/21 07:12 - Acknowledgements Anesthesia Type Planned: Epidural Pt an Appropriate Candidate for the Planned Anesthesia: Yes Alternatives and Risks of Anesthesia Discussed w Pt/Guardian: Yes Pt/Guardian Understands and Agrees with Anesthesia Plan: Yes PreAnesthesia Questionnaire HEENT History: Reports: Impaired Vision Other HEENT History: Wears glasses. Gets nose bleeds. Cardiovascular History: Reports: None Respiratory History: Reports: None Gastrointestinal History: Reports: None Genitourinary History: Reports: None RIVETER HAND History: Reports: , Spontaneous Other OB/BYN History: 2014 - SAB. 07/31/2015 - - female 9#6oz. 05/21/2018 - SAB @ 2 weeks. 05/26/2019 - - female 8#9oz. 03/2020 - SAB Musculoskeletal History: Reports: None Neurological History: Reports: None Psychiatric History: Reports: None Other Psychiatric History: possible post depression with first delivery Endocrine/Metabolic History: Reports: Diabetes, Gestational, Other (See Below) Other Endocrine/Metabolic History: GDM with last . Iron Infusions - anemia Hematologic History: Reports: Anemia, Iron Deficiency Immunologic History: Reports: None Oncologic (Cancer) History: Reports: Basal Cell Carcinoma Dermatologic History: Reports: None - Infectious Disease History Infectious Disease History: Reports: Chicken Pox - Past Surgical History Head Surgeries/Procedures: Reports: None HEENT Surgical History: Reports: None Cardiovascular Surgical History: Reports: None Respiratory Surgical History: Reports: None GI Surgical History: Reports: None Female Surgical History: Reports: None Endocrine Surgical History: Reports: None Neurological Surgical History: Reports: None Musculoskeletal Surgical History: Reports: None Oncologic Surgical History: Reports: None Dermatological Surgical History: Reports: None - SUBSTANCE USE Tobacco Use Status *Q: Never Tobacco User Tobacco Use Within Last Twelve Months: No Second Hand Smoke Exposure: No Recreational Drug Use History: No - HOME MEDS Home Medications: Home Meds Pnv No.95/Ferrous Fum/Folic AC [Prenavite Tablet] 1 each PO 01/25/21 [History] - CURRENT (IN HOUSE) MEDS Current Meds: Current Medications Butorphanol Tartrate (Butorphanol 1 Mg/Ml Sdv) 1 mg IVPUSH Q1H PRN PRN Reason: Pain (severe 7-10) Carboprost Tromethamine (Carboprost Tromethamine 250 Mcg/1 Ml Amp) 250 mcg IM ASDIRECTED PRN PRN Reason: Post Hemorrhage Ephedrine Sulfate (Ephedrine 50 Mg/Ml Sdv) 10 mg IVPUSH Q5M PRN PRN Reason: Hypotension Ephedrine Sulfate (Ephedrine 50 Mg/Ml Sdv) 10 mg IVPUSH Q1M PRN PRN Reason: Hypotension Oxytocin/Sodium Chloride (Oxytocin 30 Unit In Ns 0.9% 500 Ml Premix) 30 unit in 500 mls @ 500 mls/hr IV TITRATE RADHA Tranexamic Acid 1,000 mg/ (Sodium Chloride) 110 mls @ 660 mls/hr IV ONETIME PRN PRN Reason: Bleeding Lactated Ringer's (Ringers, Lactated) 1,000 mls @ 150 mls/hr IV ASDIRECTED RADHA Last Admin: 01/25/21 05:38 Dose: 150 mls/hr Documented by: Oxytocin/Sodium Chloride (Oxytocin 30 Unit In Ns 0.9% 500 Ml Premix) 30 unit in 500 mls @ 2 mls/hr IV TITRATE RADHA; Protocol Last Titration: 01/25/21 07:29 Dose: 4 munits/min, 4 mls/hr Documented by: Lidocaine HCl (Lidocaine 1% 50 Ml Mdv) 50 ml INJECT ONETIME PRN PRN Reason: Laceration repair Methylergonovine Maleate (Methylergonovine 0.2 Mg/1 Ml Amp) 0.2 mg IM ASDIRECTED PRN PRN Reason: Post Hemorrhage Miscellaneous Medication (Phenylephrine Hcl In 0.9% Nacl 1 Mg/10 Ml Syringe) 0.1 mg IVPUSH Q1M PRN PRN Reason: Hypotension Misoprostol (Misoprostol 200 Mcg Tab) 200 mcg PO ONETIME PRN PRN Reason: Post Hemorrhage Misoprostol (Misoprostol 25 Mcg (1/4 Of 100 Mcg) Tab) 25 mcg VAG ONETIME PRN PRN Reason: Cervical Ripening Misoprostol (Misoprostol 25 Mcg (1/4 Of 100 Mcg) Tab) 25 mcg VAG Q4H PRN PRN Reason: Cervical Ripening Nalbuphine HCl (Nalbuphine 10 Mg/1 Ml Vial) 10 mg IVPUSH Q1H PRN PRN Reason: Pain (severe 7-10) Ondansetron HCl (Ondansetron 4 Mg/2 Ml Sdv) 4 mg IVPUSH Q4H PRN PRN Reason: Nausea/Vomiting Ropivacaine (Ropivacaine/Pf 400 Mg/200 Ml Gardening Manager) 400 mg EPIDUR ASDIRECTED RADHA Sodium Chloride (Sodium Chloride 0.9% 10 Ml Syringe) 10 ml FLUSH ASDIRECTED PRN PRN Reason: Keep Vein Open Sodium Chloride (Sodium Chloride 0.9% 2.5 Ml Syringe) 2.5 ml FLUSH ASDIRECTED PRN PRN Reason: Keep Vein Open Sodium Chloride (Sodium Chloride 0.9% 20 Ml Sdv) 10 ml IV ASDIRECTED PRN PRN Reason: IV Use Sterile Water (Water For Irrigation,Sterile 1,000 Ml Container) 1,000 ml IRR ASDIRECTED PRN PRN Reason: delivery Terbutaline Sulfate (Terbutaline 1 Mg/Ml Sdv) 0.25 mg SUBCUT ASDIRECTED PRN PRN Reason: Tacysystole Discontinued Medications Ropivacaine (Naropin 0.2%) Confirm Administered Dose 200 mls @ as directed .ROUTE .[facility] ONE Stop: 01/25/21 08:32
[2021-01-25] MEDS ORDERED: Ropivacaine 0.2% 2MG/ML 200 ML Bag EPIDUR SCH (08:45)
--- NOTE | 2021-01-25 08:45 | PCM.POSTAN ---
POST ANESTHESIA ASSESSMENT - MENTAL STATUS Mental Status: Alert, Oriented - RESPIRATORY Respiratory Status: Respiratory Rate WNL, Airway Patent, O2 Saturation Stable - CARDIOVASCULAR CV Status: Pulse Rate WNL, Blood Pressure Stable - GASTROINTESTINAL GI Status: No Symptoms - POST OP HYDRATION Hydration Status: Adequate & Stable
--- NOTE | 2021-01-25 08:47 | PCM.SN.2 ---
- Pre-Procedure Checklist Attending Provider Aware: Yes Chart Reviewed: Yes Consent Signed: Yes Labs Reviewed: Yes VS/FHR Reviewed: Yes Patient Identification Confirmation Method: Reports: Chart Visual, ID Band Visual, Verbal Patient Pt an Appropriate Candidate for the Planned Anesthesia: Yes Alternatives and Risks of Anesthesia Discussed w Pt/Guardian: Yes - Procedure Procedure Start Date: 01/25/21 Procedure Start Time: 08:[address]: Reports: Blood Pressure, Heart Rate, SPO2 Functional IV: Yes Safety Measures: Reports: Patient Identified, Procedure Verified, Site Verified, Procedure Time Out Patient Position: Reports: Sitting Prep: Reports: Alcohol x3, Betadine x3 Local Anesthetic: Reports: Intradermal Wheal w Lidocaine 1% Regional Placement Level: Reports: L2-3 Needle: Reports: 17 g Touhy Approach: Reports: Midline Technique: Reports: FRANCINE Glass Syringe Parasthesia: Reports: None Fluid Obtained: Reports: None Test Dose Medication: Reports: Lidocaine 1.5% w Epinephrine 1:200,000 Test Dose Response: Reports: Negative Continuous Infusion Start Time: 08:35 Continuous Infusion Medication: 0.2% Naropin Continuous Infusion Rate: 18 Continuous Infusion PCS Bolus Option: 4 Continuous Infusion Lockout Dose (cc/hr): 28 Patient Position Post Placement: Reports: Supline/YOLIE VS and FHR Monitored in Unit Post Placement: Yes Procedure End Date: 01/25/21 Procedure End Time: 09:21
[2021-01-25] MEDS ORDERED: Lanolin 100% Cream 7 GM Tube TOP PRN (18:02)
[2021-01-25] MEDS ORDERED: Docusate Sodium 100 MG Cap PO PRN (18:02)
[2021-01-25] MEDS ORDERED: Ibuprofen 400 MG Tab PO PRN (18:02)
[2021-01-25] MEDS ORDERED: Witch Hazel Medicated Pads 40/Jar TOP PRN (18:02)
[2021-01-25] MEDS ORDERED: Acetaminophen 500 MG Tab PO PRN (18:02)
[2021-01-25] MEDS ORDERED: Bisacodyl 10 MG Supp RECTAL PRN (18:02)
[2021-01-25] MEDS ORDERED: Benzocaine/Menthol 20%-0.5% Spray 78 GM Cannister TOP PRN (18:02)
--- NOTE | 2021-01-25 18:03 | PCM.DEL ---
L & D Note - General Info Date of Service: 01/25/21 Mother's Due Date: 01/30/21 - Delivery Note Labor: Spontaneous, Induced by Oxytocin Cervical Ripening Method: Oxytocin Delivery Outcome: Livebirth Infant Delivery Method: Spontaneous Vaginal Delivery-Single Presentation: Left Occiput Anterior (BRAIN) Nuchal Cord: None Prep: Other Anesthesia Type: Epidural Amniotic Fluid Description: Clear Episiotomy Type: None Laceration: 3rd Degree Suture type: Vicryl, Chromic, Other (PDS) Suture size: 2-0 Placenta: Intact, Spontaneous Cord: 3 Vessels Estimated Blood Loss: 200 Resuscitation Needed: No Eldridge: Suctioned Score 1 min: 8 Score 5 min: 9 - General Info Date of Service: 01/25/21 - Patient Data Weight - Most Recent: 100.607 kg Lab Results Last 24 Hours: Laboratory Results - last 24 hr 01/25/21 01/25/21 01/25/21 Range/Units 05:35 05:35 05:50 WBC 6.98 (4.0-11.0) K/uL RBC 4.41 (4.30-5.90) M/uL Hgb 12.0 (12.0-16.0) g/dL Hct 36.7 (36.0-46.0) % MCV 83.2 (80.0-98.0) fL MCH 27.2 (27.0-32.0) pg MCHC 32.7 (31.0-37.0) g/dL RDW Std Deviation 72.3 H (28.0-62.0) fl RDW Coeff of Steph 25 H (11.0-15.0) % Plt Count 245 (150-400) K/uL Nucleated RBC % 0.0 /100WBC Nucleated RBCs # 0 K/uL SARS-CoV-2 RNA (BEATRIZ) NEGATIVE (NEGATIVE) Blood Type A POSITIVE Antibody Screen NEGATIVE Med Orders - Current: Current Medications Butorphanol Tartrate (Butorphanol 1 Mg/Ml Sdv) 1 mg IVPUSH Q1H PRN PRN Reason: Pain (severe 7-10) Carboprost Tromethamine (Carboprost Tromethamine 250 Mcg/1 Ml Amp) 250 mcg IM ASDIRECTED PRN PRN Reason: Post Hemorrhage Ephedrine Sulfate (Ephedrine 50 Mg/Ml Sdv) 10 mg IVPUSH Q5M PRN PRN Reason: Hypotension Ephedrine Sulfate (Ephedrine 50 Mg/Ml Sdv) 10 mg IVPUSH Q1M PRN PRN Reason: Hypotension Oxytocin/Sodium Chloride (Oxytocin 30 Unit In Ns 0.9% 500 Ml Premix) 30 unit in 500 mls @ 500 mls/hr IV TITRATE RADHA Tranexamic Acid 1,000 mg/ (Sodium Chloride) 110 mls @ 660 mls/hr IV ONETIME PRN PRN Reason: Bleeding Lactated Ringer's (Ringers, Lactated) 1,000 mls @ 150 mls/hr IV ASDIRECTED RADHA Last Admin: 01/25/21 12:59 Dose: 150 mls/hr Documented by: Oxytocin/Sodium Chloride (Oxytocin 30 Unit In Ns 0.9% 500 Ml Premix) 30 unit in 500 mls @ 2 mls/hr IV TITRATE RADHA; Protocol Last Titration: 01/25/21 14:50 Dose: 20 munits/min, 20 mls/hr Documented by: Lidocaine HCl (Lidocaine 1% 50 Ml Mdv) 50 ml INJECT ONETIME PRN PRN Reason: Laceration repair Methylergonovine Maleate (Methylergonovine 0.2 Mg/1 Ml Amp) 0.2 mg IM ASDIRECTED PRN PRN Reason: Post Hemorrhage Miscellaneous Medication (Phenylephrine Hcl In 0.9% Nacl 1 Mg/10 Ml Syringe) 0.1 mg IVPUSH Q1M PRN PRN Reason: Hypotension Misoprostol (Misoprostol 200 Mcg Tab) 200 mcg PO ONETIME PRN PRN Reason: Post Hemorrhage Misoprostol (Misoprostol 25 Mcg (1/4 Of 100 Mcg) Tab) 25 mcg VAG ONETIME PRN PRN Reason: Cervical Ripening Misoprostol (Misoprostol 25 Mcg (1/4 Of 100 Mcg) Tab) 25 mcg VAG Q4H PRN PRN Reason: Cervical Ripening Nalbuphine HCl (Nalbuphine 10 Mg/1 Ml Vial) 10 mg IVPUSH Q1H PRN PRN Reason: Pain (severe 7-10) Ondansetron HCl (Ondansetron 4 Mg/2 Ml Sdv) 4 mg IVPUSH Q4H PRN PRN Reason: Nausea/Vomiting Ropivacaine (Ropivacaine 0.2% 2mg/Ml 200 Ml Bag) 400 mg EPIDUR ASDIRECTED RADHA Sodium Chloride (Sodium Chloride 0.9% 10 Ml Syringe) 10 ml FLUSH ASDIRECTED PRN PRN Reason: Keep Vein Open Sodium Chloride (Sodium Chloride 0.9% 2.5 Ml Syringe) 2.5 ml FLUSH ASDIRECTED PRN PRN Reason: Keep Vein Open Sodium Chloride (Sodium Chloride 0.9% 20 Ml Sdv) 10 ml IV ASDIRECTED PRN PRN Reason: IV Use Sterile Water (Water For Irrigation,Sterile 1,000 Ml Container) 1,000 ml IRR ASDIRECTED PRN PRN Reason: delivery Terbutaline Sulfate (Terbutaline 1 Mg/Ml Sdv) 0.25 mg SUBCUT ASDIRECTED PRN PRN Reason: Tacysystole Discontinued Medications Ropivacaine (Naropin 0.2%) Confirm Administered Dose 200 mls @ as directed .ROUTE .[facility] ONE Stop: 01/25/21 08:32 - Exam Urinary Catheter Total Time: 0Days 0Hours - Problem List & Annotations (1) Vaginal delivery SNOMED Code(s): 324532358 Code(s): O80 - ENCOUNTER FOR FULL-TERM UNCOMPLICATED DELIVERY Status: Acute Current Visit: No - Problem List Review Problem List Initiated/Reviewed/Updated: Yes - My Orders Last 24 Hours: My Active Orders 01/25/21 05:21 Patient Status [ADT] Routine Heart Tones [RC] CONTINUOUS Non Stress Test [RC] PER UNIT ROUTINE May Shower [RC] ASDIRECTED Notify Provider [RC] PRN Up ad Pepper [RC] ASDIRECTED Vaginal Exam [RC] PRN Vital Signs [RC] PER UNIT ROUTINE Butorphanol [Stadol] 1 mg IVPUSH Q1H PRN Carboprost Tromethamine [Hemabate DS] 250 mcg IM ASDIRECTED PRN Lidocaine 1% [Xylocaine 1%] 50 ml INJECT ONETIME PRN Methylergonovine [Methergine] 0.2 mg IM ASDIRECTED PRN Nalbuphine [Nubain] 10 mg IVPUSH Q1H PRN Ondansetron [Zofran] 4 mg IVPUSH Q4H PRN Sodium Chloride 0.9% [Normal Saline] 10 ml IV ASDIRECTED PRN Sodium Chloride 0.9% [Saline Flush] 10 ml FLUSH ASDIRECTED PRN Sodium Chloride 0.9% [Saline Flush] 2.5 ml FLUSH ASDIRECTED PRN Tranexamic Acid [Cyklokapron] 1,000 mg Sodium Chloride 0.9% [Normal Saline] 100 ml IV ONETIME Water For Irrigation,Sterile [Sterile Water for Irrigation] 1,000 ml IRR ASDIRECTED PRN miSOPROStoL [Cytotec] 200 mcg PO ONETIME PRN Scalp Electrode [WOMSER] Per Unit Routine Peripheral IV Insertion Adult [OM.PC] Routine Resuscitation Status Routine 01/25/21 05:27 Bedrest Bathroom Privileges [RC] ASDIRECTED Communication Order [RC] ASDIRECTED Communication Order [RC] ASDIRECTED Communication Order [RC] ASDIRECTED Notify Provider [RC] PRN Notify Provider [RC] PRN Notify Provider [RC] STAT Terbutaline [Brethine] 0.25 mg SUBCUT ASDIRECTED PRN miSOPROStoL [Cytotec] 25 mcg VAG ONETIME PRN miSOPROStoL [Cytotec] 25 mcg VAG Q4H PRN 01/25/21 05:30 Lactated Ringers [Ringers, Lactated] 1,000 ml IV ASDIRECTED Oxytocin/0.9 % Sodium Chloride [Oxytocin 30 Unit in NS 0.9% 500 ML Premix] 30 unit in 500 ml IV TITRATE Oxytocin/0.9 % Sodium Chloride [Oxytocin 30 Unit in NS 0.9% 500 ML Premix] 30 unit in 500 ml IV TITRATE Medication Administration Instruction [OM.PC] Q3H 01/25/21 05:35 RPR (SYPHILIS SERO) W/ RFLX [REF] Routine 01/25/21 08:05 Nurse Communication: Isolation [RC] ASDIRECTED Isolation [COMM] Routine
[2021-01-25] MEDS: Ibuprofen 800 MG Tab PO PRN (18:52)
[2021-01-25] MEDS: oxyCODONE 5 MG Tab PO PRN (18:55)
[2021-01-25] MEDS: Docusate Sodium 100 MG Cap PO SCH (21:11)
[2021-01-25] MEDS: Acetaminophen 500 MG Tab PO PRN (21:11)
--- NOTE | 2021-01-25 22:03 | OR ---
SURGEON: Yarely Nj M.D. DATE OF PROCEDURE: 01/25/2021 PREOPERATIVE DIAGNOSES: 1. 39 and 2/7 week intrauterine . 2. Suspected macrosomia. POSTOPERATIVE DIAGNOSES: 1. 39 and 2/7 week intrauterine . 2. Suspected macrosomia. PROCEDURES: 1. Pitocin induction of labor. 2. Term spontaneous vaginal delivery. 3. Repair of third-degree laceration. PRIMARY SURGEON: Yarely Nj M.D. ANESTHESIA: Epidural. ESTIMATED BLOOD LOSS: Less than 200 mL. FINDINGS: 1. Live-born female. 2. scores of 8 and 9, weighing 4500 g. 3. Placenta spontaneous, Schultze intact with three vessels. 4. Third-degree laceration noted and repaired. COMPLICATIONS: None known. DISPOSITION: Mother and baby in LDR in good condition. BRIEF HISTORY: This is a 30-year-old female, G3, P2. She presents at 39 and 2/7 week gestation with suspected macrosomia for induction of labor. She does have a history of a fourth-degree laceration with her first followed by a second- degree laceration with her second and was offered delivery. However, she desires to proceed with vaginal delivery understanding increased risk for pelvic trauma based on her history, and she was admitted to Labor and Delivery. She was initially 2 to 3 cm dilated. She received IV Pitocin. When she was 3 to 4 cm dilated, she received an epidural for pain control. At 4 to 5 cm dilatation, artificial rupture of membranes was performed. She had clear fluid. She was known to be group B strep negative. She had category 1 heart tones. She progressed to complete. DESCRIPTION OF PROCEDURE: With the patient in dorsal lithotomy position, under adequate epidural analgesia, the patient pushed over a 30-minute time period to a 5+ station, at which time the head was delivered spontaneously and atraumatically over the perineum with support, with slow gentle pushing and subsequent delivery of the infant's shoulders and body without any difficulty. The infant was bulb- suctioned by nose and mouth, and the cord was clamped x2 and cut after 2 minutes, and the was handed to the mother in the presence of nurse attending delivery. The was a liveborn female, scores of 8 and 9, weighing 4500 g. Upon inspection of the pelvis and perineum, there were no periurethral, vaginal sidewall, cervical, or rectal lacerations. There was a third-degree perineal laceration. This was repaired by identifying the sphincter and 3-0 PDS was utilized in a [id number] suture at the anterior, superior, and inferior surfaces with supporting [id number] 3-0 Vicryl surrounding the tissue. Rectal examination was performed and there was good support with tension on the sutures, and there was also no evidence of any trauma to the rectal mucosa and no sutures in the rectum. The remainder of the repair was closed in the normal fashion using a running lock suture of 3-0 Vicryl for the vaginal mucosa and a deep running suture for the perineum, and a running subcuticular suture for the skin. Final sponge, needle, and instrument counts were correct. There were no known complications. Mother and baby remain in LDR in good condition. MARY CANTRELL /[id number]
[2021-01-26] MEDS: Ibuprofen 800 MG Tab PO PRN ×3 (01:00→14:50)
[2021-01-26] MEDS: Acetaminophen 500 MG Tab PO PRN ×4 (03:05→17:51)
[2021-01-26] MEDS: oxyCODONE 5 MG Tab PO PRN (03:05)
--- NOTE | 2021-01-26 08:35 | PCM.PNPP ---
- General Info Date of Service: 01/26/21 Functional Status: Reports: Pain Controlled, Tolerating Diet, Ambulating, Urinating - Review of Systems General: Reports: No Symptoms HEENT: Reports: No Symptoms Pulmonary: Reports: No Symptoms Cardiovascular: Reports: No Symptoms Gastrointestinal: Reports: No Symptoms Genitourinary: Reports: No Symptoms Musculoskeletal: Reports: No Symptoms Skin: Reports: No Symptoms Neurological: Reports: No Symptoms Psychiatric: Reports: No Symptoms - Patient Data Vital Signs - Most Recent: Last Vital Signs Temp 36.3 C 01/26/21 08:00 Pulse 70 01/26/21 08:00 Resp 18 01/26/21 08:00 BP 102/59 L 01/26/21 08:00 Pulse Ox 97 01/26/21 08:00 Weight - Most Recent: 100.607 kg Lab Results - Last 24 Hours: Laboratory Results - last 24 hr 01/26/21 Range/Units 06:15 Hgb 10.8 L (12.0-16.0) g/dL Hct 34.1 L (36.0-46.0) % Med Orders - Current: Current Medications Acetaminophen (Acetaminophen 500 Mg Tab) 500 mg PO Q4H PRN PRN Reason: Pain (mild 1-3) Acetaminophen (Acetaminophen 500 Mg Tab) 1,000 mg PO Q4H PRN PRN Reason: Pain (mild 1-3) Last Admin: 01/26/21 03:05 Dose: 1,000 mg Documented by: Benzocaine/Menthol (Benzocaine/Menthol 20%-0.5% [place] 78 Gm Cannister) 78 gm TOP ASDIRECTED PRN PRN Reason: Perineal Comfort Measure Last Admin: 01/25/21 21:13 Dose: 1 canister Documented by: Bisacodyl (Bisacodyl 10 Mg Supp) 10 mg RECTAL ONETIME PRN PRN Reason: Constipation Docusate Sodium (Docusate Sodium 100 Mg Cap) 100 mg PO BID RADHA Last Admin: 01/25/21 21:11 Dose: 100 mg Documented by: Emollient Ointment (Lanolin 100% Cream 7 Gm Tube) 0 gm TOP ASDIRECTED PRN PRN Reason: Sore Nipples Last Admin: 01/25/21 21:14 Dose: 1 tube Documented by: Ibuprofen (Ibuprofen 400 Mg Tab) 400 mg PO Q4H PRN PRN Reason: Pain (mild 1-3) Ibuprofen (Ibuprofen 800 Mg Tab) 800 mg PO Q6H PRN PRN Reason: Cramping Last Admin: 01/26/21 01:00 Dose: 800 mg Documented by: Oxycodone HCl (Oxycodone 5 Mg Tab) 5 mg PO Q2H PRN PRN Reason: Pain (severe 7-10) Last Admin: 01/26/21 03:05 Dose: 5 mg Documented by: Erika Carmen (Erika Carmen Medicated Pads 40/Jar) 1 pad TOP ASDIRECTED PRN PRN Reason: comfort care Last Admin: 01/25/21 21:12 Dose: 1 container Documented by: Discontinued Medications Butorphanol Tartrate (Butorphanol 1 Mg/Ml Sdv) 1 mg IVPUSH Q1H PRN PRN Reason: Pain (severe 7-10) Carboprost Tromethamine (Carboprost Tromethamine 250 Mcg/1 Ml Amp) 250 mcg IM ASDIRECTED PRN PRN Reason: Post Hemorrhage Ephedrine Sulfate (Ephedrine 50 Mg/Ml Sdv) 10 mg IVPUSH Q5M PRN PRN Reason: Hypotension Ephedrine Sulfate (Ephedrine 50 Mg/Ml Sdv) 10 mg IVPUSH Q1M PRN PRN Reason: Hypotension Oxytocin/Sodium Chloride (Oxytocin 30 Unit In Ns 0.9% 500 Ml Premix) 30 unit in 500 mls @ 500 mls/hr IV TITRATE RADHA Tranexamic Acid 1,000 mg/ (Sodium Chloride) 110 mls @ 660 mls/hr IV ONETIME PRN PRN Reason: Bleeding Lactated Ringer's (Ringers, Lactated) 1,000 mls @ 150 mls/hr IV ASDIRECTED RADHA Last Admin: 01/25/21 12:59 Dose: 150 mls/hr Documented by: Oxytocin/Sodium Chloride (Oxytocin 30 Unit In Ns 0.9% 500 Ml Premix) 30 unit in 500 mls @ 2 mls/hr IV TITRATE RADHA; Protocol Last Titration: 01/25/21 16:18 Dose: 500 munits/min, 500 mls/hr Documented by: Ropivacaine (Naropin 0.2%) Confirm Administered Dose 200 mls @ as directed .ROUTE .STK-MED ONE Stop: 01/25/21 08:32 Last Admin: 01/25/21 23:32 Dose: Not Given Documented by: Lidocaine HCl (Lidocaine 1% 50 Ml Mdv) 50 ml INJECT ONETIME PRN PRN Reason: Laceration repair Methylergonovine Maleate (Methylergonovine 0.2 Mg/1 Ml Amp) 0.2 mg IM ASDIRECTED PRN PRN Reason: Post Hemorrhage Miscellaneous Medication (Phenylephrine Hcl In 0.9% Nacl 1 Mg/10 Ml Syringe) 0.1 mg IVPUSH Q1M PRN PRN Reason: Hypotension Misoprostol (Misoprostol 200 Mcg Tab) 200 mcg PO ONETIME PRN PRN Reason: Post Hemorrhage Misoprostol (Misoprostol 25 Mcg (1/4 Of 100 Mcg) Tab) 25 mcg VAG ONETIME PRN PRN Reason: Cervical Ripening Misoprostol (Misoprostol 25 Mcg (1/4 Of 100 Mcg) Tab) 25 mcg VAG Q4H PRN PRN Reason: Cervical Ripening Nalbuphine HCl (Nalbuphine 10 Mg/1 Ml Vial) 10 mg IVPUSH Q1H PRN PRN Reason: Pain (severe 7-10) Ondansetron HCl (Ondansetron 4 Mg/2 Ml Sdv) 4 mg IVPUSH Q4H PRN PRN Reason: Nausea/Vomiting Ropivacaine (Ropivacaine 0.2% 2mg/Ml 200 Ml Bag) 400 mg EPIDUR ASDIRECTED RADHA Sodium Chloride (Sodium Chloride 0.9% 10 Ml Syringe) 10 ml FLUSH ASDIRECTED PRN PRN Reason: Keep Vein Open Sodium Chloride (Sodium Chloride 0.9% 2.5 Ml Syringe) 2.5 ml FLUSH ASDIRECTED PRN PRN Reason: Keep Vein Open Sodium Chloride (Sodium Chloride 0.9% 20 Ml Sdv) 10 ml IV ASDIRECTED PRN PRN Reason: IV Use Sterile Water (Water For Irrigation,Sterile 1,000 Ml Container) 1,000 ml IRR ASDIRECTED PRN PRN Reason: delivery Terbutaline Sulfate (Terbutaline 1 Mg/Ml Sdv) 0.25 mg SUBCUT ASDIRECTED PRN PRN Reason: Tacysystole - Infant Interaction Infant Disposition, : in Room with Family Infant Interaction: Holding Infant Feeding: Breastfed ; Nursed Well Support Person: - Recovery Exam Fundal Tone: Firm Fundal Level: 1 Fingerbreadths Above Umbilicus Fundal Placement: Midline Lochia Amount: Scant Lochia Color: Rubra/Red Perineum Description: Edematous Episiotomy/Laceration: Approximated Bladder Status: Voiding Urinary Elimination: Voided - Exam General: Alert, Oriented Neck: Supple Lungs: Normal Respiratory Effort GI/Abdominal Exam: Soft, Non-Tender, No Distention Extremities: Non-Tender, No Pedal Edema Neurological: No New Focal Deficit Psy/Mental Status: Alert, Normal Affect, Normal Mood - Problem List & Annotations (1) Vaginal delivery SNOMED Code(s): 221168285 Code(s): O80 - ENCOUNTER FOR FULL-TERM UNCOMPLICATED DELIVERY Status: Acute Current Visit: No - Problem List Review Problem List Initiated/Reviewed/Updated: Yes - My Orders Last 24 Hours: My Active Orders 01/25/21 08:05 Isolation [COMM] Routine 01/25/21 18:02 Patient Status [ADT] Routine Vital Signs [RC] PER UNIT ROUTINE Acetaminophen [Tylenol Extra Strength] 1,000 mg PO Q4H PRN Acetaminophen [Tylenol Extra Strength] 500 mg PO Q4H PRN Benzocaine/Menthol [Dermoplast Pain Relief 20%-0.5% [place]] 78 gm TOP ASDIRECTED PRN Ibuprofen [Motrin] 400 mg PO Q4H PRN Ibuprofen [Motrin] 800 mg PO Q6H PRN Lanolin [Lansinoh HPA] See Dose Instructions TOP ASDIRECTED PRN bisacodyL [Dulcolax] 10 mg RECTAL ONETIME PRN oxyCODONE 5 mg PO Q2H PRN witch Nuzhat [Tucks] 1 pad TOP ASDIRECTED PRN Assess Lochia [WOMSER] Per Unit Routine Assess Uterine Involution [WOMSER] Per Unit Routine Peripheral IV Discontinue [OM.PC] Routine 01/25/21 21:00 Docusate Sodium [Colace] 100 mg PO BID - Assessment Assessment:: PPD#1 after , 3rd degree laceration. Pain is controlled, tolerating diet. Baby is maintaining glucose levels. Anticipate discharge this evening if baby is stable. - Plan Plan:: Discharge instructions reviewed.
[2021-01-26] MEDS: Docusate Sodium 100 MG Cap PO SCH (08:53)
== END 2021-01-26 19:50 | disposition home or self-care (01) | DRG 768 ==
LOC: MW.OBCHECK 05:16 → MW.OB 05:18 → MW.OBCHECK 05:20 → MW.OB 05:21 → OBSVTOIN 16:16 → MW.OB 21:26
PROVIDERS: ADMIT Obstetrics & Gynecology; ATTEND Obstetrics & Gynecology
PROC: 10E0XZZ Delivery of Products of Conception, External Approach (ICD-10-PCS; principal; 2021-01-25)
PROC: 0DQR0ZZ Repair Anal Sphincter, Open Approach (ICD-10-PCS; 2021-01-25)
PROC: 10907ZC Drainage of Amniotic Fluid, Therapeutic from Products of Conception, Via Natural or Artificial Opening (ICD-10-PCS; 2021-01-25)
PROC: 3E033VJ Introduction of Other Hormone into Peripheral Vein, Percutaneous Approach (ICD-10-PCS; 2021-01-25)
PROC: 10H07YZ Insertion of Other Device into Products of Conception, Via Natural or Artificial Opening (ICD-10-PCS; 2021-01-25)
PROC: 10E0XZZ Delivery of Products of Conception, External Approach (ICD-10-PCS; 2021-01-25)
PROC: 3E0R3BZ Introduction of Anesthetic Agent into Spinal Canal, Percutaneous Approach (ICD-10-PCS; 2021-01-25)
PROC: 00HU33Z Insertion of Infusion Device into Spinal Canal, Percutaneous Approach (ICD-10-PCS; 2021-01-25)
DX: O36.63X0 Maternal care for excessive fetal growth, third trimester, not applicable or unspecified (principal); Z37.0 Single live birth; O70.20 Third degree perineal laceration during delivery, unspecified; Z3A.39 39 weeks gestation of pregnancy; Z20.822 Contact with and (suspected) exposure to COVID-19
CPT/HCPCS: 36415; 51702; 59025; 59409; 85014; 85018; 85027; 86592; 86850; 86900; 86901; A9270-GY; J2590; J2795; J7120; U0002

== ENCOUNTER 2023-03-25 21:49 | Emergency (ER) | payer OTHER ==
[2023-03-25] MEDS ORDERED: Ondansetron 4 MG Tab.DIS PO ONE (23:26)
[2023-03-25] MEDS ORDERED: Acetaminophen/HYDROcodone 325-5 MG Tab PO ONE (23:26)
== END 2023-03-26 01:34 | disposition home or self-care (01) ==
LOC: MW.ED 21:49
DX: S82.492A Other fracture of shaft of left fibula, initial encounter for closed fracture (principal); W10.9XXA Fall (on) (from) unspecified stairs and steps, initial encounter
CPT/HCPCS: 29515; 73610; 99283; A9270